=== PATIENT | female | born 1970 | race Two or more races ===

== ENCOUNTER 2017-01-07 13:35 | Emergency (ER) | payer OTHER ==
[~2017-01-07] VITALS: Ht 152.4 cm; Wt 73.5 kg
[2017-01-07] MEDS ORDERED: HYDROCODONE/ACETAMINOPHEN 5-325 MG TABLET PO ONE (14:15)
[2017-01-07] MEDS ORDERED: LIDOCAINE HCL/PF 1% 2 ML VIAL IM ONE (14:15)
[2017-01-07] MEDS ORDERED: CefTRIAXone SODIUM 1 GM/VIAL IM ONE (14:15)
[2017-01-07 15:05] VITALS: BP 132/89
== END 2017-01-07 15:31 | disposition home or self-care (01) ==
LOC: EMS 13:42
DX: K04.7 Periapical abscess without sinus (principal); K02.9 Dental caries, unspecified
CPT/HCPCS: 96372; 99283; J0696; J3490